=== PATIENT | male | born 1995 | race Caucasian/White ===

== ENCOUNTER → 2017-01-24 | Outpatient (CLI) | payer BC ==
[2017-01-24 14:40] LABS: CONTROL LINE HPYORI INT CTR LINE PRESENT
[2017-01-24 16:15] LABS: AMYLASE 60 U/L (25-115)
== END ==
LOC: M SMT 09:24
PROVIDERS: ATTEND Physician Assistant
DX: K21.9 Gastro-esophageal reflux disease without esophagitis (principal)

== ENCOUNTER 2017-07-05 12:54 | Day surgery (SDC) | payer BC ==
[2017-07-05] MEDS ORDERED: NS 1,000 ML IV (14:00)
[2017-07-05] MEDS ORDERED: PROPOFOL 200 MG/20 ML VIAL As Ordered (14:18)
[2017-07-05] MEDS ORDERED: LIDOCAINE 2% INJ 100 MG/5 ML SDV (FOR ANES.) As Ordered (14:18)
== END 2017-07-05 15:05 | disposition home or self-care (01) ==
LOC: M OPP 12:54
DX: R12 Heartburn (principal); K21.0 Gastro-esophageal reflux disease with esophagitis; G80.9 Cerebral palsy, unspecified; M54.9 Dorsalgia, unspecified; Z79.899 Other long term (current) drug therapy; Z80.3 Family history of malignant neoplasm of breast; Z80.0 Family history of malignant neoplasm of digestive organs
CPT/HCPCS: 43239

== ENCOUNTER → 2022-10-17 | Outpatient (REF) | payer BC ==
[~2022-10-17] MED LIST: LANS15CA PO
[2022-10-19 17:09] LABS: TESTOSTERONE FREE (DIRECT) 13.5 pg/mL (9.3-26.5)
== END ==
LOC: M LAB REF 16:44
PROVIDERS: ATTEND Internal Medicine
DX: R68.82 Decreased libido (principal)

== ENCOUNTER → 2023-06-28 | Outpatient (CLI) | payer BC | LOC: M RAD 15:54 | PROVIDERS: ATTEND Physician Assistant | DX: M54.59 Other low back pain (principal) ==